=== PATIENT | female | born 1985 | race Asian ===

== ENCOUNTER 2024-02-18 11:14 | Emergency (ER) | payer SELFPAY ==
[2024-02-18 11:16] VITALS: BP 128/85; PULSE 93; RESP 19; TEMP 36.6; O2SAT 99
[2024-02-18 11:37] LABS: Basophils Percent Auto 0.2 % (0.2-1.2); Eosinophils Percent Auto 0.2 % (0-4.4); Hematocrit 40.5 % (37.0-47.0); Hemoglobin 14.4 g/dL (12.0-15.0); Immature Granulocyte Absolute 0.06 K/mm3 (0.00-0.031); Immature Granulocyte Percent A 0.4 % (0-0.5); Lymphocytes Absolute Auto 0.71 K/mm3 (0.9-3.2); Lymphocytes Percent Auto 4.2 % (18.3-44.2); Mean Corpuscular HGB Conc 35.6 g/dl (32-36); Mean Corpuscular Hemoglobin 30.9 pg (26-34); Mean Corpuscular Volume 86.9 fl (80-100); Mean Platelet Volume 8.7 fl (7.4-10.4); Monocytes Absolute Auto 0.8 K/mm3 (0.1-0.6); Monocytes Percent Auto 4.9 % (2.6-8.5); Neutrophils Absolute Auto 15.3 K/mm3 (1.3-6.7); Neutrophils Percent Auto 90.1 % (45.5-73.1); Platelet Count Result 414 k/mm3 (150-375); Red Blood Count 4.66 M/mm3 (4.2-5.4); White Blood Count 16.9 K/mm3 (4.5-10.0)
[2024-02-18 11:47] LABS: Alanine Aminotransferase 14 U/L (6-35); Albumin Level 4.4 g/dL (3.5-5.1); Alkaline Phosphatase 63 U/L (38-126); Anion Gap 9 mmol/L (4-12); Aspartate Amino Transferase 24 U/L (14-36); Bilirubin,Total 1.1 mg/dL (0.2-1.3); Blood Urea Nitrogen 15 mg/dL (7-17); Calcium 9.4 mg/dL (8.4-10.2); Carbon Dioxide 17 mmol/L (22-30); Chloride 110 mmol/L (98-107); Estimated CRCL calculation 76 ml/min; Estimated Glomerular Filt Rate > 60; Glucose 126 mg/dL (65-110); Lipase 47 U/L (23-300); Potassium 3.9 mmol/L (3.4-5.0); Sodium 136 mmol/L (137-145)
--- NOTE | 2024-02-18 12:03 | ED_ITS ---
HPI - Abdominal Pain General Chief Complaint: Abdominal Pain Stated Complaint: abd pain Time Seen by Provider: 02/18/24 11:34 History of Present Illness HPI narrative: 38-year-old otherwise healthy female presenting to the emergency room with chief complaint of nausea, vomiting, abdominal cramping and diarrhea for the past several hours. Patient states she would do better normal state of health after eating [employer] pizza last night. She woke up this morning with profound nausea and had several episodes of vomiting as well as pure watery diarrhea. Endorses subjective abdominal cramping but no bloating or distention. No fever chills. She states she feels dehydrated denies difficulty tolerating p.o. intake presently. No one else with similar symptoms at home, people did the the same meal without any complaints. She was otherwise in her normal state of health. She has a history of prior cholecystectomy but no other abdominal surgeries. Occasional drinking once a week. Related Data Allergies Allergy/AdvReac Type Severity Reaction Status Date / Time No Known Allergies Allergy Verified 02/18/24 11:30 Review of Systems 2 Review of Systems: As reviewed above in this HPI Exam 2 Narrative: GENERAL: [Well-appearing, well-nourished, and in no acute distress.] HEAD: [Normocephalic, atraumatic.] EYES: [PERRLA and EOMI.] ENT: Nares clear, no rhinorrhea or epistaxis. Mucous membranes dry. NECK: Supple. CHEST: [Clear to auscultation. No respiratory distress.] HEART: [Regular rate and rhythm]. No murmur heard. [Normal peripheral pulses.] ABDOMEN: [Soft, nondistended], [nontender], [No rigidity or guarding] EXTREMITIES: Normal range of motion. [No edema.] SKIN: Warm, dry, no rash. NEURO: [No focal deficits]. Alert and oriented [x3.] PSYCH: [Normal mood and affect.] Course Vital Signs Vital signs: Vital Signs Temperature 36.6 C 02/18/24 11:16 Pulse Rate 93 02/18/24 11:16 Respiratory Rate 19 02/18/24 11:16 Blood Pressure 128/85 02/18/24 11:16 Pulse Oximetry 99 02/18/24 11:16 Oxygen Delivery Room Air 02/18/24 11:16 Temperature 36.7 C 02/18/24 15:00 Pulse Rate 70 02/18/24 15:00 Respiratory Rate 16 02/18/24 15:00 Blood Pressure 97/61 L 02/18/24 15:00 Pulse Oximetry 100 02/18/24 15:00 Oxygen Delivery Room Air 02/18/24 11:16 MDM - Abdominal Pain MDM Narrative Medical decision making narrative: 38-year-old otherwise healthy female presenting to the emergency room with nausea vomiting diarrhea and abdominal cramping. Symptom onset for the past several hours. She was otherwise in her normal state of health recently. Did eat [employer] pizza last night and her symptoms started few hours after that. She does appear slightly dehydrated with dry mucous membranes but otherwise has normal reassuring vital signs tachycardia, hypoxia, blood pressure concerns, tachypnea or fever. She has a soft nontender nondistended abdomen, no CVA tenderness. No urinary complaints but did she mentioned after the fact that she was recently treated for UTI by 1 month prior with complete resolution of symptoms. Differential includes gastroenteritis, gastritis, food poisoning, less likely intra-abdominal process such as appendicitis. Will obtain workup including CBC, CMP, urinalysis, test, COVID flu RSV swabs. She was treated with morphine, Pepcid, Zofran and fluid bolus for hydration. Patient was re-evaluated had complete symptomatic resolution but still felt slightly dehydrated. She was given additional fluid bolus which improved her there. Workup shows a leukocytosis of 16.9 but no anemia. Electrolytes largely within normal limits, normal potassium, no anion gap, normal renal function panel, normal glucose and hepatic function panel. Normal lipase. Urinalysis with some trace ketones but no evidence of infection. Negative COVID fluid RSV swabs. Patient was re-evaluated again and still had no symptoms while here in the emergency department, no abdominal pain, nausea, vomiting or diarrhea. At this time given her clinical improvement and rehydration I believe she is stable for discharge home at this time but we did go over return precautions including any recurrence of her symptoms despite conservative therapy management which will send her home with. Patient verbalized understanding and was stable for discharge at this time. Medical Records Attestation: I reviewed the patient's medical records. Lab Data Attestation: I reviewed the patient's lab results. 02/18/24 11:32 02/18/24 11:32 Labs: Lab Results 02/18/24 02/18/24 02/18/24 Range/Units 11:32 12:04 12:14 WBC 16.9 H (4.5-10.0) K/mm3 RBC 4.66 (4.2-5.4) M/mm3 Hgb 14.4 (12.0-15.0) g/dL Hct 40.5 (37.0-47.0) % MCV 86.9 (80-100) fl MCH 30.9 (26-34) pg MCHC 35.6 (32-36) g/dl RDW 12.0 (11.5-14.5) % Plt Count 414 H (150-375) k/mm3 MPV 8.7 (7.4-10.4) fl Immature Gran % (Auto) 0.4 (0-0.5) % Neut % (Auto) 90.1 H (45.5-73.1) % Lymph % (Auto) 4.2 L (18.3-44.2) % [place] % (Auto) 4.9 (2.6-8.5) % Eos % (Auto) 0.2 (0-4.4) % Baso % (Auto) 0.2 (0.2-1.2) % Lymph # (Auto) 0.71 L (0.9-3.2) K/mm3 [place] # (Auto) 0.8 H (0.1-0.6) K/mm3 Eos # (Auto) 0.0 (0-0.3) K/mm3 Baso # (Auto) 0.0 (0.0-0.1) K/mm3 Abs Immat Gran (auto) 0.06 H (0.00-0.031) K/mm3 Absolute Neuts (auto) 15.3 H (1.3-6.7) K/mm3 Absolute Nucleated RBC 0.000 (0.0-0.012) K/mm3 Nucleated RBC % 0.0 (0.0-0.2) % Sodium 136 L (137-145) mmol/L Potassium 3.9 (3.4-5.0) mmol/L Chloride 110 H (98-107) mmol/L Carbon Dioxide 17 L (22-30) mmol/L Anion Gap 9 (4-12) mmol/L BUN 15 (7-17) mg/dL Creatinine 0.70 (0.7-1.0) mg/dL Estim Creat Clear Calc 76 ml/min Estimated GFR > 60 (59 - ) Glucose 126 H (65-110) mg/dL Calcium 9.4 (8.4-10.2) mg/dL Total Bilirubin 1.1 (0.2-1.3) mg/dL AST 24 (14-36) U/L ALT 14 (6-35) U/L Alkaline Phosphatase 63 (38-126) U/L Total Protein 8.0 (6.3-8.2) g/dL Albumin 4.4 (3.5-5.1) g/dL Lipase 47 (23-300) U/L Urine Color Dark yellow (Yellow) Urine Appearance Clear (Clear) Urine pH 6.5 (5.0-9.0) Ur Specific [place] 1.030 (1.001-1.035) Urine Protein 1+ H (Negative) mg/dL Urine Glucose (UA) Negative (Negative) mg/dL Urine Ketones Trace H (Negative) mg/dL Ur Blood (Man) Negative (Negative) Urine Nitrate Negative (Negative) Urine Bilirubin Negative (Negative) Urine Urobilinogen 1.0 (<2.0) mg/dL Add Ur Microanalysis Reviewed Leukocyte Esterase Rfl Trace H (Negative) MANUEL/UL Urine RBC 0-2 (0-2) /hpf Urine WBC 0-5 (0-3) /hpf Ur Squamous Epith Cells Occasional (Few) /hpf Urine Bacteria None seen /hpf Urine Casts 0-2 Urine Mucus Present /lpf Urine Test Negative Influenza A (RT-PCR) Negative (Negative) Influenza B (RT-PCR) Negative (Negative) SARS-CoV-2 RNA (RT-PCR) Negative (Negative) Discharge Plan Discharge Clinical Impression: Gastroenteritis, Food poisoning Patient Disposition: Home, Self-Care Condition: Stable Instructions: Antibiotic Form, Dehydration (DC), Gastroenteritis (DC), Acute Nausea and Vomiting (DC), Abdominal Pain (ED) Additional Instructions: We will send you home with some symptomatic treatment severe nausea, vomiting, diarrhea and your belly cramping. Your symptoms been well controlled while here in the emergency department he did not require any additional pain medications. You did get several L of fluid for hydration. If you have any new or worsening concerns such as return of your pain, persistent nausea, inability tolerating p.o. intake please return to the emergency department otherwise safely follow-up with your regular doctor and take the as needed medications. Patient Language: Malian Prescriptions: New loperamide [Anti-Diarrheal (loperamide)] 2 mg capsule 2 mg PO Q6H PRN (Reason: loose stool) Qty: 14 0RF dicyclomine 20 mg tablet 20 mg PO TID PRN (Reason: abdominal pain) Qty: 20 0RF ondansetron 4 mg tablet,disintegrating 4 mg PO Q8H PRN (Reason: nausea and vomiting) Qty: 10 0RF Follow-up/Referrals: PHYSICIAN,PHYSICAL THERAPY ATTENDANT [Primary Care Provider] -
[2024-02-18] MEDS: MORPHINE SULFATE (*CRX) 4 MG/ML INJ IV PUSH (12:07)
[2024-02-18] MEDS: FAMOTIDINE 20 MG/2 ML VIAL IV PUSH (12:07)
[2024-02-18] MEDS: ONDANSETRON INJ 4 MG/2 ML VIAL IV PUSH (12:07)
[2024-02-18] MEDS: LACTATED RINGERS 1,000 ML 999 ML IV CONT ×2 (12:07→13:47)
[2024-02-18 12:20] LABS: Pregnancy On Board Control Positive; Urine Pregnancy Test Negative
[2024-02-18 12:22] LABS: Add Urine Microscopic? YES; Appearance Urine Clear (Clear); Bacteria Urine None Seen /hpf; Bilirubin Urine Negative (Negative); Blood Urine Negative (Negative); Color Urine Dark Yellow (Yellow); Glucose Urine UA Negative (Negative); Ketones Urine Trace mg/dL (Negative); Leukocyte Esterase Ur Trace LEU/UL (Negative); Mucus Urine Present /lpf; Need Manual Microscopic Reviewed; Nitrate Urine Negative (Negative); Non Pathogenic Casts 0-2; Protein Urine 1+ mg/dL (Negative); RBC Urine 0-2 /hpf (0-2); Squamous Epithelial Cell Urine Occasional /hpf (Few); WBC Urine 0-5 /hpf (0-3); pH Urine 6.5 (5.0-9.0)
[2024-02-18 12:55] LABS: Influenza A QL RT-PCR Negative (Negative); Influenza B QL RT-PCR Negative (Negative); SARS-CoV-2 RNA PCR Negative (Negative)
[2024-02-18 15:00] VITALS: BP 97/61; PULSE 70; RESP 16; TEMP 36.7; O2SAT 100
--- OUTSIDE RECORDS SUMMARY | 2024-02-25 15:48 | XMS_ITS | Data Portability ---
Author Organization [facility] [place] Address [address] [place] [address] Assessment Encounter Date Assessment Date Assessment LastModified by Organization Details LastModified Time 03/16/2023 03/16/2023 Annual gynecological exam performed. Patient will come back in a year unless there are new symptoms. [email or web address] Not available 03/16/2023 18:02:25 01/22/2024 01/22/2024 Patient here due to a UTI. Patient c/o of frequency, and burning with urination. Patient's dip showed trace protein and + Leukocytes. Per MM sending macrobid to patient's pharmacy. Will send urine for a culture. Patient made aware and verbalized understanding. [email or web address] Not available 01/22/2024 16:50:21 Plan of Treatment Reminders Order Date Submit Date Provider Last Modified By Organization Details Last Modified Time Details Appointments None recorded. Lab lipid panel, blood 2021 022 [facility] (Lab), [address], [place], [address], 2 04:12:47 HbA1c (hemoglobi n A1c), blood 2021 022 [facility] (Lab), [address], [place], [address], 2 04:12:53 vitamin D, 25-hydroxy , total, serum 2021 022 [facility] (Lab), [address], [place], [address], 2 04:12:52 CMP, serum or plasma 2021 022 [facility] (Lab), [address], [place], [address], 2 04:12:48 CBC w/ auto diff 2021 022 [facility] (Lab), [address], [place], [address], 2 04:12:50 TSH, serum or plasma 2021 022 [facility] (Lab), [address], [place], [address], 2 04:12:49 vitamin B12 + folate, serum or blood 2021 022 [facility] (Lab), [address], [place], [address], 2 04:12:51 vitamin D, 25-hydroxy , total, serum 2021 022 [facility] (Lab), [address], [place], [address], 2 04:14:17 urinalysis , dipstick 2023 024 [email or web address] [place], [facility] [address], [address], [place], [address], 4 16:51:15 culture, urine 2023 024 [facility] (Lab), [address], [place], [address], 4 11:55:21 Referral primary care provider referral - General primary care visit 2021 022 [email or web address] Latesha Navarro [facility], [address] [place] [address], [address], 2 18:21:32 Procedures None recorded. Surgeries None recorded. Imaging None recorded. Medication Orders Reclipsen (28) 0.15 mg-0.03 mg tablet 2021 022 [id number], [address], [place], [id number], 2 15:08:11 Isibloom 0.15 mg-0.03 mg tablet 2023 024 [facility] #[id number], [address], [place], [id number], 4 18:18:52 Patient TargetsNo targets recorded. Patient InstructionsNo instructions recorded. 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 (Lab) [address] [place], [address], 07/24/2021 04:12:47 07/24/19 22 07/23/2021 LIPID PANEL ,AMA (LDL- CALC) HDL cholesterol 86 mg/dL >40 Not Available [facility] (Lab) [address] [facility], [place], [address], 07/24/2021 04:12:47 07/24/19 22 07/23/2021 LIPID PANEL ,AMA (LDL- CALC) LDL cholesterol 83 mg/dL 0-99 Cutof f value s recom tawana d by the Natio nal Jennifer stero l Educa tion Progr am: SAURABH ABLE: Jennifer stero l <200 mg/dL LDL <100 mg/dL BORDE RLINE : Jennifer stero l 200-2 39 mg/dL LDL 101-1 59 mg/dL HIGHE R RISK: Jennifer stero l >240 mg/dL LDL >160 mg/dL , HDL <40 mg/dL Not Available [facility] (Lab) [address] [facility], [place], [address], 07/24/2021 04:12:47 07/24/19 22 07/23/2021 LIPID PANEL ,AMA (LDL- CALC) non-HDL cholesterol 109 mg/dL no refere nce range A reaso nable goal for non-H DL jennifer stero l is one that is 30 mg/dL highe r than the LDL jennifer stero l goal. Not Available [facility] (Lab) [address] [place], [address], 07/24/2021 04:12:47 07/24/19 22 07/23/2021 LIPID PANEL ,AMA (LDL- CALC) chol/HDL ratio 2.3 . 0.0-5. [address] [facility] (Lab) [address] [place], [address], 07/24/2021 04:12:47 07/24/1907/23/2021 CMP(C OMPRE HENSI VE METAB OLIC PANEL ) sodium 138 mmol/ L 133-[address] [facility] (Lab) [address] [place], [address], 07/24/2021 04:12:48 07/24/19 22 07/23/2021 CMP(C OMPRE HENSI VE METAB OLIC PANEL ) potassium 4.3 mmol/ L 3.5-5. [address] [facility] (Lab) [address] [facility], [place], [address], 07/24/2021 04:12:48 07/24/19 22 07/23/2021 CMP(C OMPRE HENSI VE METAB OLIC PANEL ) chloride 101 mmol/ L 98-[address] [facility] (Lab) [address] [facility], [place], [address], 07/24/2021 04:12:48 07/24/19 22 07/23/2021 CMP(C OMPRE HENSI VE METAB OLIC PANEL ) carbon dioxide 28 mmol/ L 21-[address] [facility] (Lab) [address] [facility], [place], [address], 07/24/2021 04:12:48 07/24/19 22 07/23/2021 CMP(C OMPRE HENSI VE METAB OLIC PANEL ) anion gap 9 mmol/ L 4-[address] [facility] (Lab) [address] [facility], [place], [address], 07/24/2021 04:12:48 07/24/19 22 07/23/2021 CMP(C OMPRE HENSI VE METAB OLIC PANEL ) blood urea nitrogen 18 mg/dL 7-25 Not Available [facility] (Lab) [address] [facility], [place], [address], 07/24/2021 04:12:48 07/24/19 22 07/23/2021 CMP(C OMPRE HENSI VE METAB OLIC PANEL ) creatinine 0.87 mg/dL 0.60-[address] [facility] (Lab) [address] [place], [address], 07/24/2021 04:12:48 07/24/19 22 07/23/2021 CMP(C OMPRE HENSI VE METAB OLIC PANEL ) egfrcr (CKD-epi 2020) 90 mL/mi n/1.7 3_m2 >=[address] [facility] (Lab) [address] [facility], [place], [address], 07/24/2021 04:12:48 07/24/19 22 07/23/2021 CMP(C OMPRE HENSI VE METAB OLIC PANEL ) calcium 10.0 mg/dL 8.3-[address] [facility] (Lab) [address] [facility], [place], [address], 07/24/2021 04:12:48 07/24/19 22 07/23/2021 CMP(C OMPRE HENSI VE METAB OLIC PANEL ) glucose 113 mg/dL 70-[address] [facility] (Lab) [address], [place], [address], 07/24/2021 04:12:48 07/24/19 22 07/23/2021 CMP(C OMPRE HENSI VE METAB OLIC PANEL ) protein, total 7.3 g/dL 6.4-8. [address] [facility] (Lab) [address] [facility], [place], [address], 07/24/2021 04:12:48 07/24/19 22 07/23/2021 CMP(C OMPRE HENSI VE METAB OLIC PANEL ) albumin 4.5 g/dL 3.5-5. [address] [facility] (Lab) [address] [facility], [place], [address], 07/24/2021 04:12:48 07/24/19 22 07/23/2021 CMP(C OMPRE HENSI VE METAB OLIC PANEL ) ALT 16 units /L 9-[address] [facility] (Lab) [address] [facility], [place], [address], 07/24/2021 04:12:48 07/24/19 22 07/23/2021 CMP(C OMPRE HENSI VE METAB OLIC PANEL ) alkaline phosphatase 51 units /L 34-[address] [facility] (Lab) [address] [facility], [place], [address], 07/24/2021 04:12:48 07/24/19 22 07/23/2021 CMP(C OMPRE HENSI VE METAB OLIC PANEL ) AST 20 units /L 13-[address] [facility] (Lab) [address] [place], [address], 07/24/2021 04:12:48 07/24/19 22 07/23/2021 CMP(C OMPRE HENSI VE METAB OLIC PANEL ) bilirubin, total 0.6 mg/dL 0.2-1. [address] [facility] (Lab) [address] [facility], [place], [address], 07/24/2021 04:12:48 07/24/19 22 07/23/2021 TSH, REFLE X FREE T4 TSH 1.99 uIU/m L 0.30-[address] [facility] (Lab) [address] [facility], [place], [address], 07/24/2021 04:12:49 07/24/19 22 07/23/2021 CBC W/DIF F WBC 7.9 10'3/ uL 3.6-[address] [facility] (Lab) [address] [place], [address], 07/24/2021 04:12:50 07/24/19 22 07/23/2021 CBC W/DIF F RBC 4.40 10'6/ uL (based on docume nted legal sex) 4.10-[address] [facility] (Lab) [address] [place], [address], 07/24/2021 04:12:50 07/24/19 22 07/23/2021 CBC W/DIF F HGB 13.3 g/dL (based on docume nted legal sex) 11.9-[address] [facility] (Lab) [address] [facility] [place], [address], 07/24/2021 04:12:50 07/24/19 22 07/23/2021 CBC W/DIF F HCT 40.6 % (based on docume nted legal sex) 37.4-[address] [facility] (Lab) [address] [facility], [place], [address], 07/24/2021 04:12:50 07/24/19 22 07/23/2021 CBC W/DIF F MCV 93.0 fL 82.0-[address] [facility] (Lab) [address] [facility], [place], [address], 07/24/2021 04:12:50 07/24/19 22 07/23/2021 CBC W/DIF F MCH 31.0 pg 27.0-[address] [facility] (Lab) [address] [facility], [place], [address], 07/24/2021 04:12:50 07/24/19 22 07/23/2021 CBC W/DIF F MCHC 33.0 g/dL 32.0-[address] [facility] (Lab) [address] [facility], [place], [address], 07/24/2021 04:12:50 07/24/19 22 07/23/2021 CBC W/DIF F RDW 13.0 % 11.0-[address] [facility] (Lab) [address] [facility], [place], [address], 07/24/2021 04:12:50 07/24/19 22 07/23/2021 CBC W/DIF F plt 398 10'3/ uL 150-[address] [facility] (Lab) [address] [facility], [place], [address], 07/24/2021 04:12:50 07/24/19 22 07/23/2021 CBC W/DIF F MPV 10.7 fL 9.8-[address] [facility] (Lab) [address] [facility], [place], [address], 07/24/2021 04:12:50 07/24/19 22 07/23/2021 CBC W/DIF F NRBC's 0.00 % [address] [facility] (Lab) [address] [facility], [place], [address], 07/24/2021 04:12:50 07/24/19 22 07/23/2021 CBC W/DIF F absolute NRBCs 0.0 10'3/ uL [address] [facility] (Lab) [address] [facility], [place], [address], 07/24/2021 04:12:50 07/24/19 22 07/23/2021 CBC W/DIF F neutrophils 52.0 % 37.0-[address] [facility] (Lab) [address] [facility], [place], [address], 07/24/2021 04:12:50 07/24/19 22 07/23/2021 CBC W/DIF F lymphocytes 37.0 % 16.0-[address] [facility] (Lab) [address] [facility], [place], [address], 07/24/2021 04:12:50 07/24/19 22 07/23/2021 CBC W/DIF F monocytes 7.0 % 4.0-[address] [facility] (Lab) [address] [facility], [place], [address], 07/24/2021 04:12:50 07/24/19 22 07/23/2021 CBC W/DIF F eosinophils 3.0 % 0.0-9. [address] [facility] (Lab) [address] [facility], [place], [address], 07/24/2021 04:12:50 07/24/19 22 07/23/2021 CBC W/DIF F basophils 1.0 % 0.0-2. [address] [facility] (Lab) [address] [facility], [place], [address], 07/24/2021 04:12:50 07/24/19 22 07/23/2021 CBC W/DIF F immature granulocytes 0.0 % no define d refere nce range Not Available [facility] (Lab) [address] [facility], [place], [address], 07/24/2021 04:12:50 07/24/19 22 07/23/2021 CBC W/DIF F absolute neutrophils 4.2 10'3/ uL 1.1-6. [address] [facility] (Lab) [address] [facility], [place], [address], 07/24/2021 04:12:50 07/24/19 22 07/23/2021 CBC W/DIF F absolute lymphocytes 2.9 10'3/ uL 0.7-3. [address] [facility] (Lab) [address] [facility], [place], [address], 07/24/2021 04:12:50 07/24/19 22 07/23/2021 CBC W/DIF F absolute monocytes 0.5 10'3/ uL 0.3-1. [address] [facility] (Lab) [address] [place], [address], 07/24/2021 04:12:50 07/24/19 22 07/23/2021 CBC W/DIF F absolute eosinophils 0.2 10'3/ uL 0.0-0. [address] [facility] (Lab) [address] [place], [address], 07/24/2021 04:12:50 07/24/19 22 07/23/2021 CBC W/DIF F absolute basophils 0.1 10'3/ uL 0.0-0. [address] [facility] (Lab) [address] [place], [address], 07/24/2021 04:12:50 07/24/19 22 07/23/2021 CBC W/DIF F absolute immature granulocytes 0.00 10'3/ uL 0.00-0 .10 2021 2:16 AM: P indic ates parti al resul ts on a panel have been relea sed. Addit ional resul ts will follo w. 2021 2:16 AM: This resul t has been final verif ied. No addit ional or hardy ed resul ts are expec pernell. Not Available [facility] (Lab) [address] [facility], [place], [address], 07/24/2021 04:12:50 07/24/19 22 07/23/2021 VITAM IN B12 / FOLAT E PANEL vitamin B12 290 pg/mL 180-91 4 Kim l Range : 180-9 14 pg/mL . Indet ermin ate Range : 145-1 80 pg/mL . Defic ient Range : <=145 pg/mL . Not Available [facility] (Lab) [address] [facility], [place], [address], 07/24/2021 04:12:51 07/24/19 22 07/23/2021 VITAM IN B12 / FOLAT E PANEL folate, serum 9.8 NG/mL 6.0-[address] [facility] (Lab) [address] [place], [address], 07/24/2021 04:12:51 07/24/19 22 07/23/2021 VITAM IN D, 25-OH (TOTA L D2/D3 ) vitamin D, 25-hydroxy, total 19.7 NG/mL 30-80 low NOTE: Defic iency : <20 ng/mL Insuf ficie ncy: 20-29 ng/mL Optim um Level : 30-80 ng/mL Possi ble Toxic ity: >80 ng/mL Most patie nts with toxic ity have level s >150 ng/mL . Not Available [facility] (Lab) [address] [facility], [place], [address], 07/24/2021 04:12:52 07/24/19 22 07/23/2021 HEMOG LOBIN A1C hemoglobin A1C 5.4 % 0-5.6 The Ameri can Diabe jamin [employer] iatio n recom mends that a prima ry goal of thera py shoul d be a HBA1C of < 7% and that physi cians shoul d reeva luate the treat ment regim en in patie nts with HBA1C value s consi stent ly > 8%. <5.7% Kim l 5.7 - 6.4% Incre ased risk for diabe jamin >=6.5 % Diagn ostic of diabe jamin <7.0% Goal of thera py >8.0% Actio n sugge sted Not Available [facility] (Lab) [address], [place], [address], 07/24/2021 04:12:52 01/29/20 22 01/28/2022 VITAM IN D, 25-OH (TOTA L D2/D3 ) vitamin D, 25-hydroxy, total 70.8 NG/mL 30.0-1 00.0 Sugge stive of Defic iency : <20 ng/mL Sugge stive of Insuf ficie ncy: 20-29 ng/mL Sugge stive of Suffi cienc y: 30-10 0 ng/mL Sugge stive of Toxic ity: >150 ng/mL Not Available 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 Shift in lynn sugge stive of bacte rial vagin osis. Elect janessa padilla kimberly d by Gayle morales, Nick keller, CT on 2021 at 2:42 PM ----- ----- ----- ----- ----- ----- ----- ----- ----- ----- ----- ----- ----- ----- ----- ----- ----- ---- HPV RESUL TS: HPV mRNA E6/E7 : No HPV mRNA Detec pernell NOTE: This high risk HPV mRNA assay detec ts fourt een high- risk HPV types (16, 18, 31, 33, 35, 39, 45, 51, 52, 56, 58, 59, 66, 68) witho ut diffe renti ation . COMME NT: Note: This speci men was revie wed by a Cytot echno logis t and/o r Patho logis t (as indic ated in this repor t) after evalu ation using the Thinp rep Imagi ng Syste m. CLINI PREET INFOR MATIO N: Menst rual Statu s: LMP (if appli cable ): Clini preet Histo ry/Pr eviou s Pap: Type of Neopl cosmo (if appli cable ): Signi fican t Clini preet Findi ngs: Other Histo ry: Hormo lorie (if appli cable ): PAP EDUCA CHRIS L NOTE: The Pap Test is a scree narcisa test with an inher ent false negat inge rate. Liqui d-bas ed sampl ing may decre ase, but will not elimi fran, false negat ineg resul ts. A negat inge resul t does not precl ude the prese nce and/o r devel opmen t of disea se, since the prese nce of abnor mal cells in the sampl e depen ds on the locat ion of the lesio n and sampl ing techn ique. Wayne nued regul ar scree narcisa is the best metho d of cance r preve ntion . If repor pernell cytol ogic findi ng do not corre late with physi preet and/o r histo rical findi ngs, furth er inves tigat ion is recom tawana d, as clini felipe corbin nted. Not Available 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 Elect janessa padilla kimberly d by Krishan Barnes, CT on 2023 at 11:08 AM ----- ----- ----- ----- ----- ----- ----- ----- ----- ----- ----- ----- ----- ----- ----- ----- ----- ---- HPV RESUL TS: HPV mRNA E6/E7 : No HPV mRNA Detec pernell NOTE: This high risk HPV mRNA assay detec ts fourt een high- risk HPV types (16, 18, 31, 33, 35, 39, 45, 51, 52, 56, 58, 59, 66, 68) witho ut diffe renti ation . COMME NT: This speci men was revie wed by a Cytot echno logis t and/o r Patho logis t (as indic ated in this repor t) after evalu ation using the Thinp rep Imagi ng Syste m. CLINI PREET INFOR MATIO N: Menst rual Statu s: LMP (if appli cable ): Clini preet Histo ry/Pr eviou s Pap: Type of Neopl cosmo (if appli cable ): Signi fican t Clini preet Findi ngs: Other Histo ry: Hormo lorie (if appli cable ): PAP EDUCA CHRIS L NOTE: The Pap Test is a scree narcisa test with an inher ent false negat inge rate. Liqui d-bas ed sampl ing may decre ase, but will not elimi fran, false negat inge resul ts. A negat inge resul t does not precl ude the prese nce and/o r devel opmen t of disea se, since the prese nce of abnor mal cells in the sampl e depen ds on the locat ion of the lesio n and sampl ing techn ique. Wayne nued regul ar scree narcisa is the best metho d of cance r preve ntion . If repor pernell cytol ogic findi ng do not corre late with physi preet and/o r histo rical findi ngs, furth er inves tigat ion is recom tawana d, as clini felipe warrkarin nted. Not Available [facility] (Lab) [address], [place], [address], 03/20/2023 12:11:34 03/16/19 24 03/16/2023 CT/GC (KELLEY) , THINP REP VIAL chlamydia trachomatis, PCR Negati ve negati ve Not Available [facility] (Lab) [address], [place], [address], 03/20/2023 12:11:35 03/16/19 24 03/16/2023 CT/GC (KELLEY) , THINP REP VIAL neisseria gonorrhoeae, PCR Negati ve negati ve Not Available [facility] (Lab) [address] [facility], [place], [address], 03/20/2023 12:11:35 03/16/19 24 03/16/2023 TRICH OMONA S VAGIN IZABELA (RRNA ) trichomonas vaginalis ribosomal RNA (rrna) Negati ve negati ve Not Available [facility] ([facility]) [address] [facility], [place], [address], 03/20/2023 12:11:36 01/22/20 24 01/22/2024 CULTU RE: URINE result report SEE RESULT S BELOW abnormal Test: Cultu re: Urine Speci men Sourc e: Urine - Clean Catch Speci men Type: Urine Speci men Date: 01/21 1604 Resul t Date: 01/23 1050 Resul t Statu s: Final resul t Abnor mal: Yes Resul tadg Lab: [facility] [address] [facility] [address] Tel: CULTU RE ----- ----- ----- --- >100, 000 CFU/m l Staph yloco ccus sapro phyti cus (Abno rmal) Staph yloco ccus sapro phyti cus typic ally respo nds to urine jay ntrat ions of antim icrob ials used to treat acute , uncom plica pernell urina ry tract infec tions (nitr ofura ntoin , trime thopr im/joseph lfame thoxa zole or fluro nancy lones ). Not Available [facility] ([facility]) [address] [facility], [place], [address], 01/24/2024 11:55:21 01/22/20 24 01/22/2024 urina lysis , dipst ick Leukocytes + Not Available [facility] [address] [place], [address], 01/22/2024 16:50:24 01/22/20 24 01/22/2024 urina lysis , dipst ick Nitrite Negati ve Not Available [facility] [address], [place], [address], 01/22/2024 16:50:24 01/22/20 24 01/22/2024 urina lysis , dipst ick Urobilinogen Normal Not Available [facility] [address], [place], [address], 01/22/2024 16:50:24 01/22/20 24 01/22/2024 urina lysis , dipst ick Protein Trace Not Available [facility] [address], [place], [address], 01/22/2024 16:50:24 01/22/20 24 01/22/2024 urina lysis , dipst ick pH 7 Not Available [facility] [address], [place], [address], 01/22/2024 16:50:24 01/22/20 24 01/22/2024 urina lysis , dipst ick Blood + Not Available [facility] [address], [place], [address], 01/22/2024 16:50:24 01/22/20 24 01/22/2024 urina lysis , dipst ick Specific [place] 1.010 Not Available [facility] [address], [place], [address], 01/22/2024 16:50:24 01/22/20 24 01/22/2024 urina lysis , dipst ick Ketone Negati ve Not Available [facility] [address], [place], [address], 01/22/2024 16:50:24 01/22/20 24 01/22/2024 urina lysis , dipst ick Bilirubin Negati ve Not Available [facility] [address], [place], [address], 01/22/2024 16:50:24 01/22/20 24 01/22/2024 urina lysis , dipst ick Glucose Normal Not Available [facility] [address], [place], [address], 01/22/2024 16:50:24 01/22/20 24 01/22/2024 urina lysis , dipst ick Color Light yellow Not Available [facility] [address], [place], [id number], 01/22/2024 16:50:24 Result Notes None recorded. Procedures Surgical History Date Name Laterality Status Provider Name and Address Organization Details Recorded Time 01/29/20 22 Date of Last Pap Smear completed [place] [facility] 03/16/2023 18:01:41 Cholecystectomy completed [facility] 07/23/2021 14:50:03 Tonsillectomy completed [facility] 07/23/2021 14:50:03 Imaging Results None recorded. Procedure Notes None recorded. Medical Equipment None Reported. Allergies No known drug allergies Medications Name Sig Start Date Stop Date Status Note LastModified by Organization Details LastModified Time amoxicillin 500 mg capsule TAKE ONE CAPSULE BY MOUTH EVERY 6 HOURS UNTIL ALL TAKEN 07/23 completed Not Available Not Available Not Available citalopram 10 mg tablet TAKE 2 TABLETS BY MOUTH ONCE DAILY 07/23 completed Not Available Not Available Not Available metronidazo le 0.75 % (37.5 mg/5 gram) vaginal gel Insert 1 applicato rful every day by vaginal route at bedtime for 5 days. 03/16 completed Not Available Not Available Not Available dextroamphe tamine-amph etamine 10 mg tablet TAKE 1 TABLET BY MOUTH TWICE DAILY active Not Available Not Available No t Available triamcinolo ne acetonide 0.1 % topical cream APPLY A THIN LAYER TO THE AFFECTED AREA(S) BY TOPICAL ROUTE 2 TIMES PER DAY active Not Available Not Available No t Available citalopram 20 mg tablet TAKE 1 TABLET BY MOUTH EVERY DAY active Not Available Not Available No t Available Cipro 500 mg tablet Take 1 tablet every 12 hours by oral route. 2023 active Not Available Not Available Not Avai lable ergocalcife rol (vitamin D2) 1,250 mcg (50,000 unit) capsule TAKE 1 CAPSULE BY MOUTH EVERY WEEK WITH MEALS active Not Available Not Available No t Available Reclipsen (28) 07/23 completed Not Available Not Available Not Available All Day Allergy (cetirizine ) 10 mg capsule active Not Available Not Available Not Available Isibloom 0.15 mg-0.03 mg tablet TAKE 1 TABLET BY MOUTH EVERY DAY WITH MEALS active Not Available Not Available No t Available ID NOW COVID-19 Test Kit TEST DIRECTED TODAY 07/23 completed Not Available Not Available Not Available Vitals Date Recorded Body height Body mass index (BMI) Body weight Provider Name and Address Organization Details Last Updated DateTime 07/23/2021 160.02 cm 24.7 kg/m2 42804.78 g Nu Epstein [facility] 07/23/2021 14:49:25 Date Recorded Systolic blood pressure Diastolic blood pressure Provider Name and Address Organization Details Last Updated DateTime 07/23/2021 118 mm[Hg] 72 mm[Hg] Chloe Neal, [facility]- [address], [place], [address], [facility] 07/23/2021 15:24:57 Date Recorded Body height Body mass index (BMI) Body weight Systolic blood pressure Diastolic blood pressure Provider Name and Address Organization Details Last Updated DateTime 01/28/2022 160.02 cm 24.7 kg/m2 18328.78 g 116 mm[Hg] 74 mm[Hg] Nu Epstein [facility] 15:11:00 Date Recorded Body height Body mass index (BMI) Body weight Systolic blood pressure Diastolic blood pressure Provider Name and Address Organization Details Last Updated DateTime 03/16/2023 160.02 cm 25.9 kg/m2 91764.49 g 122 mm[Hg] 81 mm[Hg] Barbra River [facility] 4 18:05:24 Date Recorded Body height Body mass index (BMI) Body weight Systolic blood pressure Diastolic blood pressure Provider Name and Address Organization Details Last Updated DateTime 01/22/2024 160.02 cm 25.9 kg/m2 81558.49 g 141 mm[Hg] 85 mm[Hg] Gracemouna Cadet [facility] 4 16:50:16 Social History Question Answer Notes LastModified by Organizat ion Details LastModified Time Tobacco Smoking Status Never Smoker Gwendolyn Searsmarcos moncada, [facility] 03/16/2023 17:59:43 Do You Have An Advance Directive? No Information not available 07/23/2021 What Is Your Level Of Alcohol Consumption? Occasional Information not available 07/23/2021 How Many Years Have You Consumed Alcohol? 20 Information not available 07/23/2021 Are You Blind Or Do You Have Difficulty Seeing? No Information not available 07/23/2021 What Is Your Level Of Caffeine Consumption? Moderate Information not available 07/23/2021 How Much Tobacco Do You Chew? None Information not available 07/23/2021 In The 14 Days Before Symptom Onset, Have You Had Close Contact With A Laboratory-confir med COVID-19 While That Case Was Ill? No Information not available 07/23/2021 In The 14 Days Before Symptom Onset, Have You Had Close Contact With A Person Who Is Under Investigation For COVID-19 While That Person Was Ill? No Information not available 07/23/2021 Have You Been To An Area Known To Be High Risk For COVID-19? No Information not available 07/23/2021 Are You Deaf Or Do You Have Serious Difficulty Hearing? No Information not available 07/23/2021 What Type Of Diet Are You Following? REGULAR Information not available 07/23/2021 What Is The Highest Grade Or Level Of School You Have Completed Or The Highest Degree You Have Received? 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 No Information not available 07/23/2021 Do You Use Protection During Sex? No Information not available 07/23/2021 Do You Use Your Seat Belt Or Car Seat Routinely? Yes Information not available 07/23/2021 Do You Have Smoke And Carbon Monoxide Detectors In Your Home? Yes Information not available 07/23/2021 At What Age Did You Start Smoking Tobacco? 15 Information not available 07/23/2021 How Much Tobacco Do You Smoke? 0.25 PPD Information not available 01/28/2022 Do You Feel Stressed (tense, Restless, Nervous, Or Anxious, Or Unable To Sleep At Night)? [id number] Information not available 07/23/2021 Do You Use Any Illicit Or Recreational Drugs? No Information not available 07/23/2021 Do You Use Sunscreen Routinely? No Information not available 07/23/2021 How Many Years Have You Smoked Tobacco? 21 Information not available 07/23/2021 Have You Used IV Drugs? No Information not available 07/23/2021 Sex: Unknown Functional Status Question Answer Note LastModified by Organizat ion Details LastModified Time Do you have difficulty walking or climbing stairs? No [email or web address] Information not available 03/16/2023 Are you able to walk? YESWOREST Information not available 07/23/2021 Are you able to care for yourself? Yes [email or web address] Information not available 03/16/2023 Do you have difficulty dressing or bathing? No Information not available 03/16/2023 What is your exercise level? Moderate Information not available 07/23/2021 Mental Status None recorded. Family History Relationship Description Onset Age of this Age Resolved Age Notes LastModified by Organization Details LastModified Time Unspecified Relation Family history unknown Not available 2021 14:49:40 Medical History Condition Response Anxiety Disorder Y Allergies (Food, seasonal, environmental ) Y Depression/ depression Y Gynecological History Statement/Question Response Abnormal Pap N Flow Moderate Date of LMP 03/08/2023 N Was last menstrual period normal Y STIs/STDs Y HPV Vaccine N Duration of Flow (days) 3 Current Control Method BCPs Are cycles usually normal Y Frequency of Cycle (Q days) 28 Sexually Active? Yes BCPs Menses Monthly Y Age of first menstrual cycle 13 Date of Last Pap Smear 01/28/2022 Sexual Problems? N Desired Control Method BCPs LMP Definite N Obstetrics History GPAL:G 0 P 0 0 0 0 Past Encounters Encounter ID Performer Location Encounter Start Date Encounter Closed Date Diagnosis/Indication Diagnosis SNOMED-CT Code Diagnosis ICD10 Code [id number] Chloe Neal [facility] [address],[place] [address] 07/23/2021 14:32:00 07/23/2021 15:59:20 Gynecologic examination 71377560 Z01.419 Adult heal th examination 272484312 Z00.00 Contracept ion care management 321446515 Z30.9 [id number] Chloe Neal [facility] [address],[place] [address] 01/28/2022 15:03:22 01/28/2022 15:46:17 Sampling of vagina for Papanicolaou smear 595323367 Z01.42 Vitamin D deficiency 347 67364 E55.9 [id number] Chloe Neal [facility] [address],[place] [address] 03/16/2023 17:59:17 03/16/2023 18:29:05 Contraception care management 265602940 Z30.9 Gynecologi c examination 49973444 Z01.419 Z11.51 [id number] Grace Cadet [facility] [address],[place] [address] 01/22/2024 16:27:30 01/22/2024 16:52:35 Urinary symptoms 781076853 R39.9 Health Concerns Section Related Observation LastModified by Organization Detai ls LastModified Time None Recorded Concern Status LastModified by Organization Details LastModified Time None Recorded Advance Directives Directive N: Payers Encounter Date Sequence Insurance Name Policy Number Policy [place] Covered Member ID Lomax Member ID Guarantor Name 07/23/2021 1 [place] [id number] Edwige Inman [id number] Edwige Inman 01/28/2022 1 [place] [id number] Edwige Inman [id number] Edwige Inman 03/16/2023 1 [place] [id number] Edwige Inman [id number] Edwige Inman 01/22/2024 1 [employer] [facility] (PPO) [id number] Edwige Inman [id number] Edwige Inman Notes Date Note Type Note Provider Name and Address Organization Details Recorded Time 07/23/2021 text/html Annual GYNReport ed bypatient.Menstrual cycle:Normal menses Urinary symptoms:No hematuria; No incontinence Vulva:No genital lesion Vagina:Normal vaginal discharge Breast:No breast pain; No breast lump; No nipple discharge Current Contraception:Satisf ied with current contraception; Monogamous relationship; Oral contraceptives Sexual complaints:No sexual complaints; No pain during intercourse; Normal libido Menopausal Symptoms:No menopausal symptoms; Normal vaginal lubrication Psychological symptoms:No depression; No anxiety; No PMDD Preventive measures:Encourage self breast examination; Encourage regular exercise; Encourage no tobacco use; Encourage regular mammograms starting age 40; Followed with Q3 year pap smear and high risk HPV typing Feeling fatigued.No sleep changes out of the norm for her.ExercisesEats a balanced diet fruits/veggies, grains & Lean proteins. Chloe Neal [facility] [address], [place], [address], [facility] 07/23/2021 15:26:14 01/28/2022 text/html Here today for updated pap & repeat blood work. Chloe Neal [facility] [address], [place], [address], [facility] 01/28/2022 15:46:13 03/16/2023 text/html Annual GYNReport ed bypatient.History:no gynecologic complaints Menstrual cycle:Normal menses Urinary symptoms:No hematuria; No incontinence Vulva:No genital lesion Vagina:Normal vaginal discharge Breast:No breast pain; No breast lump; No nipple discharge Current Contraception:Satisf ied with current contraception; Oral contraceptives Sexual complaints:No sexual complaints; No pain during intercourse; Normal libido Menopausal Symptoms:No menopausal symptoms; Normal vaginal lubrication Psychological symptoms:No depression; No anxiety; No PMDD Preventive measures:Encourage self breast examination; Encourage regular exercise; Encourage no tobacco use; Encourage regular mammograms starting age 40; Followed with yearly pap smears [facility] [address], [place], [address], [facility] 03/16/2023 18:24:13 OBGyn Episode No OBEpisode recorded.
--- OUTSIDE RECORDS SUMMARY | 2024-02-25 15:48 | XMS_ITS | Continuity of Care Document ---
Author Organization [facility] [place] Address [address] [place] [address] [place] [address] Assessment Encounter Date Assessment Date Assessment LastModified by Organization Details LastModified Time 01/22/2024 01/22/2024 Patient here due to a UTI. Patient c/o of frequency, and burning with urination. Patient's dip showed trace protein and + Leukocytes. Per MM sending macrobid to patient's pharmacy. Will send urine for a culture. Patient made aware and verbalized understanding . [email or web address] Not available 01/22/2024 16:50:21 Plan of Treatment Reminders Order Date Submit Date Provider Last Modified By Organization Details Last Modified Time Details Appointments None recorded. Lab urinalysis , dipstick 2023 024 [email or web address] [place], [address], [address], [place], [address], 16:51:15 culture, urine 2023 024 [facility] (Lab), [address] [facility], [place], [address], 11:55:21 Referral None recorded. Procedures None recorded. Surgeries None recorded. Imaging None recorded. Medication Orders None recorded. Patient TargetsNo targets recorded. Patient InstructionsNo instructions recorded. Reason for Referral None Reported. Results Created Date Observation Date Name Description Value Unit Range Abnormal Flag Note LastModifiedBy Organization Detail LastModifiedTime 01/22/20 24 01/22/2024 urina lysis , dipst ick Leukocytes + Not Available Milagros pickett [address], [place], [address], 01/22/2024 16:50:24 01/22/20 24 01/22/2024 urina lysis , dipst ick Nitrite Negati ve Not Available [place] [address], [place], [address], 01/22/2024 16:50:24 01/22/20 24 01/22/2024 urina lysis , dipst ick Urobilinogen Normal Not Available [facility] [address], [place], [address], 01/22/2024 16:50:24 01/22/20 24 01/22/2024 urina lysis , dipst ick Protein Trace Not Available [place] [address], [place], [address], 01/22/2024 16:50:24 01/22/20 24 01/22/2024 urina lysis , dipst ick pH 7 Not Available [place] [address], [place], [address], 01/22/2024 16:50:24 01/22/20 24 01/22/2024 urina lysis , dipst ick Blood + Not Available [place] [address], [place], [address], 01/22/2024 16:50:24 01/22/20 24 01/22/2024 urina lysis , dipst ick Specific [place] 1.010 Not Available [facility] [address], [place], [address], 01/22/2024 16:50:24 01/22/20 24 01/22/2024 urina lysis , dipst ick Ketone Negati ve Not Available [place] [address], [place], [address], 01/22/2024 16:50:24 01/22/20 24 01/22/2024 urina lysis , dipst ick Bilirubin Negati ve Not Available [place] [address], [place], [address], 01/22/2024 16:50:24 01/22/20 24 01/22/2024 urina lysis , dipst ick Glucose Normal Not Available [place] [address], [place], [address], 01/22/2024 16:50:24 01/22/20 24 01/22/2024 urina lysis , dipst ick Color Light yellow Not Available [place] [address], [place], [address], 01/22/2024 16:50:24 Result Notes None recorded. Procedures Surgical History Date Name Laterality Status Provider Name and Address Organization Details Recorded Time 01/29/20 22 Date of Last Pap Smear completed Barbra River [facility] 03/16/2023 18:01:41 Cholecystectomy completed [facility] 07/23/2021 14:50:03 Tonsillectomy completed [facility] 07/23/2021 14:50:03 Imaging Results None recorded. [...] Updated DateTime 01/22/2024 160.02 cm 25.9 kg/m2 29895.49 g 141 mm[Hg] 85 mm[Hg] Grace Cadet [facility] 16:50:16 Social History Question Answer Notes LastModified by Organizat ion Details LastModified Time Tobacco Smoking Status Never Smoker Gwendolyn moncada [facility] 03/16/2023 17:59:43 Do You Have An [...] Or The Highest Degree You Have Received? 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 [id number] Information not available 07/23/2021 Do You Use [...] have difficulty walking or climbing stairs? No [email or web address] Information not available 03/16/2023 Are you able to walk? YESWOREST Information not available 07/23/2021 Are you able to care for yourself? Yes [email or web address] Information not available 03/16/2023 Do you have [...] Diagnosis/Indication Diagnosis SNOMED-CT Code Diagnosis ICD10 Code [id number] Grace Cadet [place] [address] [address] 01/22/2024 16:27:30 01/22/2024 16:52:35 Urinary symptoms 672387809 R39.9 Health Concerns Section Related Observation LastModified by Organization Detai ls LastModified Time None Recorded Concern Status LastModified by Organization Details LastModified Time None Recorded Payers Encounter Date Sequence Insurance Name Policy Number Policy Lomax Covered Member ID Lomax Member ID Guarantor Name 01/22/2024 1 [employer] [facility] (PP[employer]) [id number] Edwige Inman [id number] Edwige Inman OBGyn Episode No OBEpisode recorded.
== END 2024-02-18 15:02 | disposition home or self-care (01) ==
PROVIDERS: Emergency Provider Student in an Organized Health Care Education/Training Program
DX: K52.9 Noninfective gastroenteritis and colitis, unspecified (principal); A05.9 Bacterial foodborne intoxication, unspecified; Z20.822 Contact with and (suspected) exposure to COVID-19
CPT/HCPCS: 36415; 80053; 81001; 81025; 83690; 85025; 87636; 96361; 96374; 96375; 99285; J2270; J2405; J7120